=== PATIENT | female | born 1995 | race Caucasian/White ===

== ENCOUNTER 2018-12-15 20:36 | Emergency (ER) | payer OTHER ==
[~2018-12-15] VITALS: Ht 162.6 cm; Wt 53.2 kg
[2018-12-15 20:39] VITALS: BP 144/83; PULSE 84; TEMP 98.7
== END 2018-12-15 22:29 | disposition home or self-care (01) ==
LOC: COL.ER 20:36
DX: S09.90XA Unspecified injury of head, initial encounter (principal); S00.03XA Contusion of scalp, initial encounter; Z90.89 Acquired absence of other organs; W22.8XXA Striking against or struck by other objects, initial encounter; Y92.39 Other specified sports and athletic area as the place of occurrence of the external cause
CPT/HCPCS: J1885

== ENCOUNTER 2021-02-04 21:27 | Emergency (ER) | payer OTHER ==
[~2021-02-04] VITALS: Ht 162.6 cm; Wt 51.4 kg
[2021-02-04 21:31] VITALS: TEMP 98
[2021-02-04] MEDS ORDERED: FLEXERIL 1010 MG/TAB PO (22:17)
[2021-02-04] MEDS ORDERED: MEDROL 4MG DOSPA4 MG PO (22:17)
[2021-02-04 22:30] VITALS: BP 110/70; PULSE 68
== END 2021-02-04 22:42 | disposition home or self-care (01) ==
LOC: COL.ER 21:27
DX: M54.5 Low back pain (principal)
CPT/HCPCS: J7512